=== PATIENT | female | born 2000 | race Two or more races ===

== ENCOUNTER 2024-06-04 14:17 | Outpatient (CLI) | payer OTHER | END 2024-06-04 14:24 | disposition home or self-care (01) | LOC: PRENATAL 14:17 | PROVIDERS: ATTEND Obstetrics & Gynecology Maternal & Fetal Medicine | DX: O35.9XX0 Maternal care for (suspected) fetal abnormality and damage, unspecified, not applicable or unspecified (principal); O35.3XX0 Maternal care for (suspected) damage to fetus from viral disease in mother, not applicable or unspecified; O44.02 Complete placenta previa NOS or without hemorrhage, second trimester; O16.2 Unspecified maternal hypertension, second trimester; Z3A.20 20 weeks gestation of pregnancy ==

== ENCOUNTER 2024-07-29 09:18 | Outpatient (CLI) | payer OTHER ==
[~2024-07-29 09:18] MED LIST: LABETALOL HCL200 MG PO
== END 2024-07-29 09:19 | disposition home or self-care (01) ==
LOC: PRENATAL 09:18
PROVIDERS: ATTEND Obstetrics & Gynecology Maternal & Fetal Medicine
DX: O26.843 Uterine size-date discrepancy, third trimester (principal); O16.3 Unspecified maternal hypertension, third trimester; O36.5930 Maternal care for other known or suspected poor fetal growth, third trimester, not applicable or unspecified; Z3A.28 28 weeks gestation of pregnancy